=== PATIENT | male | born 1985 | race Caucasian/White ===

== ENCOUNTER 2018-06-17 06:04 | Emergency (ER) | payer OTHER ==
--- NOTE | 2018-06-17 06:35 | ED Physician Documentation ---
PD HPI ABD PAIN - Stated complaint Stated Complaint: ABD PX/MALE - Chief complaint Chief Complaint: Abd Pain - History obtained from History obtained from: Patient - History of Present Illness Timing - onset: Enter time (05:30), Today Timing - details: Abrupt onset Pain level now: 8 Quality: Pain Location: Other (left flank) Improved by: Other (nothing) Worsened by: Other (no exacerbating factors) Associated symptoms: No: Fever, Nausea, Vomiting, Dysuria, Hematuria Similar symptoms before: Has not had sx before Recently seen: Not recently seen - Additional information Additional information: woke from sleep 5:30 AM with left flank pain, waxing and waning. Had mild, brief left flank pain yesterday, but otherwise has not had this before. Review of Systems Cardiac: reports: Reviewed and negative Respiratory: reports: Reviewed and negative GI: reports: Abdominal Pain (left flank). denies: Nausea, Vomiting, Constipation, Diarrhea : denies: Dysuria, Frequency, Hematuria PD PAST MEDICAL HISTORY - Past Medical History Past Medical History: No Cardiovascular: None Respiratory: None Neuro: None Endocrine/Autoimmune: None GI: None : None HEENT: None Psych: None Musculoskeletal: None Derm: None - Past Surgical History Past Surgical History: Yes - Present Medications Home Medications: Ambulatory Orders Medication Instructions Recorded Confirmed Oxycodone HCl/Acetaminophen 1 - 2 each PO Q6H PRN #20 tablet 06/17/18 [Percocet 5-325 mg Tablet] Tamsulosin [Flomax] 0.4 mg PO DAILY #10 capsule 06/17/18 - Allergies Allergies/Adverse Reactions: Allergies Allergy/AdvReac Type Severity Reaction Status Date / Time No Known Drug Allergies Allergy Verified 06/17/18 06:19 - Social History Does the pt smoke?: Yes Smoking Status: Current every day smoker Does the pt drink ETOH?: No Does the pt have substance abuse?: No - Immunizations Immunizations are current?: Yes - POLST Patient has POLST: No PD ED PE NORMAL - Vitals Vital signs reviewed: Yes - General General: Alert and oriented X 3, Well developed/nourished, Other (obvious painful distress) - Cardiac Cardiac: RRR, No murmur - Respiratory Respiratory: No respiratory distress, Clear bilaterally - Abdomen Abdomen: Normal bowel sounds, Soft, Non tender, Non distended - Back Back: No CVA TTP - Derm Derm: Normal color, Warm and dry, No rash Results - Vitals Vitals: Vital Signs - 24 hr 06/17/18 06/17/18 06:08 08:03 Temperature 36.1 C L 36.4 C L Heart Rate 87 77 Respiratory 18 20 Rate Blood Pressure 176/152 H 128/101 H O2 Saturation 100 95 Oxygen O2 Source Room air - Labs Labs: Laboratory Tests 06/17/18 06/17/18 06:25 06:25 WBC 6.7 RBC 5.60 Hgb 17.8 Hct 51.5 MCV 91.9 MCH 31.8 H MCHC 34.6 RDW 12.6 Plt Count 305 MPV 7.7 Neut # (Auto) 2.3 Lymph # (Auto) 3.4 [place] # (Auto) 0.7 Eos # (Auto) 0.2 Baso # (Auto) 0.1 Absolute Nucleated RBC 0.01 Nucleated RBC % 0.1 Sodium 137 Potassium 3.9 Chloride 104 Carbon Dioxide 22 Anion Gap 11.0 BUN 15 Creatinine 0.8 Estimated GFR (MDRD) 113 Glucose 142 H Calcium 9.1 Total Bilirubin 0.9 AST 48 H ALT 94 H Alkaline Phosphatase 34 L Total Protein 7.4 Albumin 4.7 Globulin 2.7 Albumin/Globulin Ratio 1.7 Lipase 28 - Rads (name of study) CT A/P Radiology: Prelim report reviewed, See rad report PD MEDICAL DECISION MAKING - ED course Complexity details: reviewed results, re-evaluated patient, considered differential, d/w patient ED course: Patient appeared comfortable on reevaluation after IV toradol and dilaudid, and he declined any further analgesics during remainder of ED stay. Departure - Departure Disposition: 01 Home, Self Care Clinical Impression: Renal colic Condition: Good Instructions: ED Stone Renal W Colic Follow-Up: [facility] [Provider Group] - Within 1 week Prescriptions: Oxycodone HCl/Acetaminophen [Percocet 5-325 mg Tablet] 1 - 2 each PO Q6H PRN #20 tablet PRN Reason: pain Tamsulosin [Flomax] 0.4 mg PO DAILY #10 capsule Forms: Activity restrictions Discharge Date/Time: 06/17/18 08:03
[2018-06-17] MEDS ORDERED: HYDROmorphone 1 MG/ML CARPUJECT IVP STA (06:36)
[2018-06-17] MEDS ORDERED: KETOROLAC 60 MG/2 ML VIAL IVP STA (06:36)
[2018-06-17 06:42] LABS: BASOPHILS # (AUTO) 0.1 10^3/uL (0.0-0.1); BASOPHILS % (AUTO) 1.3 %; EOSINOPHILS # (AUTO) 0.2 10^3/uL (0.0-0.7); EOSINOPHILS % (AUTO) 3.3 %; HGB - HEMOGLOBIN 17.8 g/dL (14.0-18.0); LYMPHOCYTES # (AUTO) 3.4 10^3/uL (1.5-3.5); LYMPHOCYTES % (AUTO) 50.5 %; MEAN CORPUSCULAR HEMOGLOBIN 31.8 pg (27.0-31.0); MEAN CORPUSCULAR HGB CONC 34.6 g/dL (32.0-36.0); MEAN CORPUSCULAR VOLUME 91.9 fL (80.0-94.0); MEAN PLATELET VOLUME 7.7 fL (7.4-11.4); MONOCYTES # (AUTO) 0.7 10^3/uL (0.0-1.0); MONOCYTES % (AUTO) 10.3 %; NEUTROPHILS # (AUTO) 2.3 10^3/uL (1.5-6.6); NEUTROPHILS % (AUTO) 34.6 %; PLT - PLATELET COUNT 305 10^3/uL (130-450); RED CELL DISTRIBUTION WIDTH 12.6 % (12.0-15.0); WHITE BLOOD COUNT 6.7 x10^3/uL (4.8-10.8)
[2018-06-17 06:50] LABS: ALBUMIN 4.7 g/dL (3.2-5.5); ALBUMIN/GLOBULIN RATIO 1.7 (1.0-2.2); BILIRUBIN,TOTAL 0.9 mg/dL (0.2-1.0); CALCIUM 9.1 mg/dL (8.5-10.3); CREATININE 0.8 mg/dL (0.6-1.2); TOTAL PROTEIN 7.4 g/dL (6.7-8.2)
[2018-06-17] MEDS ORDERED: IOVERSOL 320 100 ML VIAL IVP ONE (06:59)
--- NOTE | 2018-06-17 07:19 | CT Report ---
Reason: left flank pain Procedure Date: 06/17/2018 Accession Number: [id number] / [id number] Procedure: CT - Abdomen/Pelvis W/O CPT Code: FULL RESULT: EXAM: CT ABDOMEN AND PELVIS (CT KUB) EXAM DATE: 06/17/2018 07:13 AM. CLINICAL HISTORY: LEFT flank pain. COMPARISONS: None. TECHNIQUE: Routine axial helical CT imaging was performed through the abdomen and pelvis without IV contrast. Reconstructions: Coronal and sagittal. In accordance with CT protocol optimization, one or more of the following dose reduction techniques were utilized for this exam: automated exposure control, adjustment of mA and/or KV based on patient size, or use of iterative reconstructive technique. FINDINGS: Lung Bases: Unremarkable. Right Kidney/Ureter: No stones, hydronephrosis, or hydroureter. No perinephric fat stranding. Left Kidney/Ureter: Mild left-sided hydronephrosis with 3 mm obstructing stone in the proximal ureter past the ureteropelvic junction. No additional kidney stones. Other Solid Organs: Fatty liver is present. Otherwise unremarkable. Gallbladder/Bile Ducts: Unremarkable. Peritoneal Cavity: No free fluid, free air or miryam adenopathy. Bowel is grossly unremarkable. The appendix is normal. Pelvic Organs: No bladder stones or wall thickening. Noncontrast images of the visualized pelvic organs are unremarkable. Vasculature: Unremarkable. Other: None. IMPRESSION: Mild left-sided hydronephrosis and a 3 mm obstructing stone in the proximal left ureter. Fatty liver incidentally noted. RADIA
[2018-06-17] MEDS ORDERED: TAMSULOSIN 0.4 MG CAPSULE PO STA (07:50)
[2018-06-17 08:04] VITALS: BP 128/101
== END 2018-06-17 08:03 | disposition home or self-care (01) ==
LOC: ED 06:04
DX: N23 Unspecified renal colic (principal); F17.200 Nicotine dependence, unspecified, uncomplicated
CPT/HCPCS: 36415; 74176; 80053; 83690; 85025; 96374; 96375; 99283; A9270; J1170

== ENCOUNTER 2018-07-03 02:42 | Emergency (ER) | payer OTHER ==
[2018-07-03] MEDS ORDERED: SODIUM CHLORIDE 0.9% 1,000 ML IV ONE (03:00)
[2018-07-03 03:42] LABS: BASOPHILS # (AUTO) 0.1 10^3/uL (0.0-0.1); BASOPHILS % (AUTO) 1.5 %; EOSINOPHILS # (AUTO) 0.2 10^3/uL (0.0-0.7); EOSINOPHILS % (AUTO) 2.4 %; HGB - HEMOGLOBIN 17.6 g/dL (14.0-18.0); LYMPHOCYTES # (AUTO) 3.8 10^3/uL (1.5-3.5); LYMPHOCYTES % (AUTO) 48.3 %; MEAN CORPUSCULAR HEMOGLOBIN 31.9 pg (27.0-31.0); MEAN CORPUSCULAR VOLUME 91.1 fL (80.0-94.0); MEAN PLATELET VOLUME 7.9 fL (7.4-11.4); MONOCYTES % (AUTO) 12.1 %; NEUTROPHILS # (AUTO) 2.8 10^3/uL (1.5-6.6); NEUTROPHILS % (AUTO) 35.7 %; PLT - PLATELET COUNT 318 10^3/uL (130-450); RED BLOOD COUNT 5.51 10^6/uL (4.70-6.10); RED CELL DISTRIBUTION WIDTH 12.4 % (12.0-15.0); WHITE BLOOD COUNT 7.9 x10^3/uL (4.8-10.8)
--- NOTE | 2018-07-03 03:48 | ED Physician Documentation ---
History of Present Illness - Stated complaint Stated Complaint: LT FLANK,GROIN PAIN - Chief complaint Chief Complaint: Back Pain - History obtained from History obtained from: Patient - History of Present Illness Timing: Today Pain level now: 8 Improved by: no ameliorating factors Worsened by: no exacerbating factors - Additonal information Additional information: T+R from this ED 06/17/18 for left renal colic with CT demonstrating a 3mm proximal ureteral stone. He had decreasingly frequent episodes of left flank pain for the first week after being seen in ED and followed-up with PMD and was given strainer and instructed to strain urine, take ibuprofen PRN and return if worse. Pain suddenly recurred tonight and did not adequately respond to percocet (took one tablet approximately 8 PM and has one tablet left). The pain had previously been left paralumbar and left flank, but is now left flank and left groin and associated with urinary frequency and sensation of incomplete voiding Review of Systems Constitutional: denies: Fever GI: reports: Abdominal Pain. denies: Nausea, Vomiting : reports: Frequency. denies: Dysuria PD PAST MEDICAL HISTORY - Past Medical History Cardiovascular: None Respiratory: None Neuro: None Endocrine/Autoimmune: None GI: None : None HEENT: None Psych: None Musculoskeletal: None Derm: None - Past Surgical History Past Surgical History: Yes - Present Medications Home Medications: Ambulatory Orders Medication Instructions Recorded Confirmed Oxycodone HCl/Acetaminophen 1 - 2 each PO Q6H PRN #20 tablet 06/17/18 [Percocet 5-325 mg Tablet] Tamsulosin [Flomax] 0.4 mg PO DAILY #10 capsule 06/17/18 Oxycodone HCl/Acetaminophen 1 - 2 each PO Q6H PRN #14 tablet 07/03/18 [Percocet 5-325 mg Tablet] Tamsulosin [Flomax] 0.4 mg PO DAILY #10 capsule 07/03/18 - Allergies Allergies/Adverse Reactions: Allergies Allergy/AdvReac Type Severity Reaction Status Date / Time No Known Drug Allergies Allergy Verified 07/03/18 03:04 - Social History Does the pt smoke?: Yes Smoking Status: Current every day smoker Does the pt drink ETOH?: No Does the pt have substance abuse?: No - Immunizations Immunizations are current?: Yes - POLST Patient has POLST: No PD ED PE NORMAL - Vitals Vital signs reviewed: Yes - General General: Alert and oriented X 3, No acute distress, Well developed/nourished - Abdomen Abdomen: Soft, Non tender - Back Back: No CVA TTP - Derm Derm: No rash Results - Vitals Vitals: Vital Signs - 24 hr 07/03/18 07/03/18 07/03/18 03:02 03:31 04:13 Temperature 36.6 C Heart Rate 78 83 Respiratory 17 17 17 Rate Blood Pressure 142/93 H 137/98 H O2 Saturation 100 97 07/03/18 07/03/18 07/03/18 04:47 05:45 06:00 Temperature 36.2 C L Heart Rate 66 Respiratory 16 14 16 Rate Blood Pressure 120/78 O2 Saturation 96 Oxygen O2 Source Room air - Labs Labs: Laboratory Tests 07/03/18 07/03/18 07/03/18 03:10 03:10 04:05 WBC 7.9 RBC 5.51 Hgb 17.6 Hct 50.2 MCV 91.1 MCH 31.9 H MCHC 35.0 RDW 12.4 Plt Count 318 MPV 7.9 Neut # (Auto) 2.8 Lymph # (Auto) 3.8 [place] # (Auto) 1.0 Eos # (Auto) 0.2 Baso # (Auto) 0.1 Absolute Nucleated RBC 0.01 Nucleated RBC % 0.1 Sodium 137 Potassium 4.3 Chloride 107 Carbon Dioxide 27 Anion Gap 3.0 L BUN 12 Creatinine 0.9 Estimated GFR (MDRD) 98 Glucose 136 H Calcium 9.3 Total Bilirubin 0.7 AST 38 ALT 71 H Alkaline Phosphatase 35 L Total Protein 7.7 Albumin 5.0 Globulin 2.7 Albumin/Globulin Ratio 1.9 Lipase 34 Urine Color YELLOW Urine Clarity CLEAR Urine pH 5.5 Ur Specific [place] 1.020 Urine Protein NEGATIVE Urine Glucose (UA) NEGATIVE Urine Ketones NEGATIVE Urine Occult Blood MODERATE H Urine Nitrite NEGATIVE Urine Bilirubin NEGATIVE Urine Urobilinogen 0.2 (NORMAL) Ur Leukocyte Esterase NEGATIVE Urine RBC 6-10 H Urine WBC 0-3 Ur Squamous Epith Cells NONE SEEN Urine Bacteria None Seen Ur Microscopic Review INDICATED Urine Culture Comments NOT INDICATED PD MEDICAL DECISION MAKING - ED course Complexity details: reviewed old records, reviewed results, re-evaluated patient, considered differential, d/w patient ED course: on reevaluation after IV dilaudid and toradol, patient is resting comfortably in NAD and reports good pain relief. Unremarkable tests at this time (CBC, ER abd. panel, UA (hematuria as expected with renal colic but no findings to suggest UTI)). Departure - Departure Disposition: 01 Home, Self Care Clinical Impression: Renal colic Condition: Good Instructions: ED Stone Renal W Colic Follow-Up: DANIEL MCKEON MD [Primary Care Provider] - Prescriptions: Oxycodone HCl/Acetaminophen [Percocet 5-325 mg Tablet] 1 - 2 each PO Q6H PRN #14 tablet PRN Reason: pain Tamsulosin [Flomax] 0.4 mg PO DAILY #10 capsule Discharge Date/Time: 07/03/18 06:00
[2018-07-03 03:50] LABS: ALBUMIN/GLOBULIN RATIO 1.9 (1.0-2.2); BILIRUBIN,TOTAL 0.7 mg/dL (0.2-1.0); CALCIUM 9.3 mg/dL (8.5-10.3); CREATININE 0.9 mg/dL (0.6-1.2); TOTAL PROTEIN 7.7 g/dL (6.7-8.2)
[2018-07-03] MEDS ORDERED: HYDROmorphone 1 MG/ML CARPUJECT IVP STA (03:59)
[2018-07-03] MEDS ORDERED: KETOROLAC 30 MG/ML VIAL IVP STA (04:00)
[2018-07-03 04:48] LABS: BILIRUBIN,URINE NEGATIVE (NEGATIVE); GLUCOSE, URINE (UA) NEGATIVE (NEGATIVE); KETONES,URINE (UA) NEGATIVE (NEGATIVE); LEUKOCYTE ESTERASE, URINE NEGATIVE (NEGATIVE); NITRITE,URINE NEGATIVE (NEGATIVE); OCCULT BLOOD,URINE MODERATE (NEGATIVE); PH,URINE 5.5 PH (5.0-7.5); PROTEIN,URINE NEGATIVE (NEGATIVE); UROBILINOGEN,URINE 0.2 (NORMAL) E.U./dL (NORMAL)
[2018-07-03 05:06] LABS: CLARITY,URINE CLEAR (CLEAR)
[2018-07-03 05:15] LABS: BACTERIA,URINE None Seen /HPF (None Seen); SQUAMOUS EPITHELIAL CELL,UR NONE SEEN (<= Few)
[2018-07-03] MEDS ORDERED: TAMSULOSIN 0.4 MG CAPSULE PO STA (05:39)
[2018-07-03 05:46] VITALS: BP 120/78
== END 2018-07-03 06:00 | disposition home or self-care (01) ==
LOC: ED 02:42
DX: N23 Unspecified renal colic (principal); Z87.442 Personal history of urinary calculi; F17.200 Nicotine dependence, unspecified, uncomplicated
CPT/HCPCS: 36415; 80053; 81001; 83690; 85025; 96361; 96374; 99283; 99284; A9270; J1170; 81003; 87086

== ENCOUNTER 2021-07-29 04:26 | Emergency (ER) | payer OTHER ==
[2021-07-29] MEDS ORDERED: KETOROLAC 60 MG/2 ML VIAL IM STA (05:02)
--- NOTE | 2021-07-29 05:02 | ED Physician Documentation ---
History of Present Illness - Stated complaint Stated Complaint: JAW PX - Chief complaint Chief Complaint: General - History obtained from History obtained from: Patient - History of Present Illness Timing: Today - Additonal information Additional information: 36-year-old male reports that he was asleep this morning when he rolled over in bed and had sudden onset of some severe pain in his right jaw and is unable to open his mouth all the way. He feels like the jaw is stuck on the right side. He has not had recent dental problems. He denies any current or recent illness. Review of Systems Constitutional: denies: Fever, Chills, Myalgias Eyes: denies: Decreased vision Ears: denies: Ear pain Nose: denies: Rhinorrhea / runny nose, Congestion Throat: reports: Other (jaw pain to the right TMJ cannot open mouth all the way.). denies: Oral lesions / sores, Sore throat, Swollen tonsils Cardiac: denies: Chest pain / pressure Respiratory: denies: Dyspnea GI: denies: Abdominal Pain, Nausea, Vomiting : denies: Dysuria, Frequency PD PAST MEDICAL HISTORY - Past Medical History Past Medical History: Yes Cardiovascular: None Respiratory: None Neuro: None Endocrine/Autoimmune: None GI: None : None HEENT: None Psych: None Musculoskeletal: None Derm: None - Past Surgical History Past Surgical History: Yes - Present Medications Home Medications: Ambulatory Orders Medication Instructions Recorded Confirmed Amox/Clav 875/125 [Augmentin] 1 each PO Q12H #20 tablet 07/29/21 Telmisartan/Hydrochlorothiazid 1 tab PO DAILY 07/29/21 07/29/21 [Micardis Hct 40-12.5 mg Tablet] - Allergies Allergies/Adverse Reactions: Allergies Allergy/AdvReac Type Severity Reaction Status Date / Time No Known Drug Allergies Allergy Verified 07/29/21 04:57 - Social History Does the pt smoke?: Yes Smoking Status: Current every day smoker Does the pt drink ETOH?: No Does the pt have substance abuse?: No - Immunizations Immunizations are current?: Yes - POLST Patient has POLST: No PD ED PE NORMAL - Vitals Vital signs reviewed: Yes (hypertensive) - General General: Alert and oriented X 3, No acute distress, Well developed/nourished - HEENT HEENT: Atraumatic, PERRL, EOMI, Other (trismus is present with pain to palpation of the right TMJ. 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, No motor deficit, No sensory deficit, Normal speech Eye Opening: Spontaneous Motor: Obeys Commands Verbal: Oriented GCS Score: 15 - Psych Psych: Normal mood, Normal affect Results - Vitals Vitals: Vital Signs - 24 hr 07/29/21 04:37 Temperature 36.4 C L Heart Rate 89 Respiratory 17 Rate Blood Pressure 146/112 H O2 Saturation 100 Oxygen O2 Source Room air - EKG (time done) 0446 Rate: Rate (enter#) (82) Rhythm: NSR Ischemia: Normal ST segments Compare to prior EKG: Old EKG unavailable Computer interpretation: Agree with computer - Rads (name of study) CT maxillofacial Radiology: Prelim report reviewed (Impression: No acute osseous abnormality. Maxillary sinus disease worse on the right.), EMP read indepedently, See rad report PD MEDICAL DECISION MAKING - ED course Complexity details: reviewed results, re-evaluated patient, considered differential, d/w patient ED course: 36-year-old male presenting to the emergency department with pain in the right temporomandibular joint on awakening and inabilities to open his mouth has some improvement with use of Toradol and dexamethasone. He does not have dislocation of his TMJ. We did a CT maxillofacial and found some disease in his right maxillary sinus. I was concerned by the appearance of the CAT scan that these may be sinus polyps. He does have disease in both sinuses we will treat this and have him follow-up with his primary.I suspect that the reason the patient awoke this way was he was sleeping hard and sleeping on the left side pushing his jaw to the right. The patient confirms he thinks this may have been what happened. As he does indicate that he was sleeping hard. Departure - Departure Disposition: 01 Home, Self Care Clinical Impression: Right maxillary sinusitis Instructions: ED Sinusitis Abx Tx [facility]] Prescriptions: Amox/Clav 875/125 [Augmentin] 1 each PO Q12H #20 tablet Comments: Xavi today it looks like on your CAT scan there is some evidence of sinus disease especially in the right maxillary sinus. This may be an incidental finding to the reason you came to the emergency department today. I believe the likely explanation of why your mouth was so difficult to open and the pain was in the temporomandibular joint was likely sleeping hard on the left side of your face and shifting your jaw. This should resolve over the next 1 to 5 days. Augmentin has been e-scribed to [facility] in [place].
[2021-07-29] MEDS ORDERED: DEXAMETHASONE 10 MG/ML VIAL PO STA (05:03)
[2021-07-29] MEDS ORDERED: CHERRY SYRUP 10 ML UDC PO ONE (05:03)
[2021-07-29] MEDS ORDERED: cefTRIAXone 1 GM in SODIUM CHLORIDE 0.9% MINIBAG 100 ML IV STA (06:02)
[2021-07-29] MEDS ORDERED: cefTRIAXone 1 GM VIAL IM STA (06:05)
[2021-07-29 06:23] VITALS: BP 142/88
--- NOTE | 2021-07-29 08:44 | CT Report ---
PROCEDURE: MAXILLOFACIAL WO INDICATIONS: Right TMJ pain cant open mouth TECHNIQUE: Noncontrast 1.5 mm thick axial images acquired from the mandible through the frontal sinuses, with co lorrie and sagittal reformatting. For radiation dose reduction, the following was used: automated ex posure control, adjustment of mA and/or kV according to patient size. COMPARISON: None. FINDINGS: Image quality: Excellent. Bones and teeth: Temporomandibular joints are normally located. There is no suspicious asymmetric wi dening or joint effusion. No significant degenerative changes, calcifications, or cortical erosion. Orbital peck are intact. Sinus peck show no fracture or deformity. Nasal bones and septum are int act. Visualized portions of the mandible demonstrate no fractures or subluxation. Zygomatic arches are intact. Pterygoid plates are intact. Visualized portions of the skull base and auditory canals are intact. Sinuses: Mucosal thickening and polypoid mucous retention cysts within the right maxillary sinus. No acute air-fluid levels. Small mucous retention cyst or polyp at the anterior base of the left maxill chanelle sinus. 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 The left ostiomeatal unit is patent with mild mucosal thickening resident. Frontal, sphenoid sinuses, and the visible mastoid air cells are no rmally aerated. . Soft tissues: No edema, masses, or fluid collections. No enlarged lymph nodes. No soft tissue lace rations or debris. Vascular: Visualized vascular structures appear normal in the absence of contrast. Bony vascular fo ramina and canals are intact. IMPRESSION: 1. No acute osseous abnormality. 2. No abnormality or on temporal mandibular joints. 3. Bilateral maxillary sinus mucous retention cysts or polyps. 4. Final interpretation concordant with preliminary report. Reviewed by: Radha Don MD on 07/29/2021 8:43 AM PST Approved by: Radha Don MD on 07/29/2021 8:43 AM PST Station ID: [id number]
== END 2021-07-29 06:37 | disposition home or self-care (01) ==
LOC: ED 04:26
DX: J32.0 Chronic maxillary sinusitis (principal); R68.84 Jaw pain; F17.200 Nicotine dependence, unspecified, uncomplicated
CPT/HCPCS: 70486; 93005; 96372; 99282; 99284; A9270